=== PATIENT | male | born 1960 | race Caucasian/White ===

== ENCOUNTER 2019-09-22 19:05 | Emergency (ER) | payer OTHER ==
[~2019-09-22] VITALS: Ht 172.7 cm; Wt 76.4 kg
[2019-09-22] MEDS ORDERED: GAVILAX8.5 GM PO (19:19)
[2019-09-22] MEDS ORDERED: NEURONTIN 400M400 M2 PO (19:19)
[2019-09-22] MEDS ORDERED: MELATONIN3 M1 PO (19:20)
[2019-09-22] MEDS ORDERED: KEPPRA100 MG/1 M PO (19:20)
[2019-09-22] MEDS ORDERED: BUSPIRONE HCL10 MG PO (19:21)
[2019-09-22] MEDS ORDERED: TRAZODONE 150150 M1 PO (19:21)
[2019-09-22] MEDS ORDERED: KRISTALOSE20 GM PO (19:22)
[2019-09-22] MEDS ORDERED: TRAMADOL 50 MG50 MG PO (19:23)
[2019-09-22] MEDS ORDERED: ACETAMINOPHEN500 M1 PO (19:24)
[2019-09-22 21:18] LABS: ABSOLUTE NEUTROPHILS 4.4 thou/uL (1.4-8.2); BASOPHILS 0.9 % (0.0-2.0); EOSINOPHILS 5.6 % (0.0-3.0); HEMATOCRIT 33.3 % (42.0-52.0); HEMOGLOBIN 11.2 gm/dL (14.0-18.0); LYMPHOCYTES 25.6 % (24.0-44.0); MCH 29.9 pg (26.0-34.0); MCHC 33.5 g/dL (28.0-37.0); MCV 89.1 fL (80.0-100.0); MONOCYTES 6.3 % (1.0-8.0); PLATELET COUNT 123 thou/uL (150-400); POLYS 61.6 % (36.0-66.0); RBC 3.74 mil/uL (4.50-6.00); RDW 14.7 % (10.5-14.5); WBC 7.2 thou/uL (4.0-11.0)
[2019-09-22 21:23] LABS: URINE BILIRUBIN NEGATIVE (Negative); URINE BLOOD NEGATIVE (Negative); URINE CLARITY CLEAR; URINE COLOR YELLOW; URINE GLUCOSE-RANDOM* NEGATIVE (Negative); URINE KETONES NEGATIVE (Negative); URINE LEUKOCYTES-REFLEX NEGATIVE (Negative); URINE NITRITE-REFLEX NEGATIVE (Negative); URINE PROTEIN (DIPSTICK) NEGATIVE (Negative); URINE SPECIFIC GRAVITY 1.025 (1.005-1.035); URINE UROBILINOGEN 0.2 E.U./dl (0.2-1.0)
[2019-09-22 21:24] LABS: ANION GAP 9 mmol/L (7-16); BUN 17 mg/dL (7-18); CALCIUM 11.7 mg/dL (8.5-10.1); CHLORIDE 110 mmol/L (98-107); CO2 26 mmol/L (21-32); GLUCOSE 94 mg/dL (74-106); POTASSIUM 3.7 mmol/L (3.5-5.1); SODIUM 145 mmol/L (136-145)
[2019-09-22 21:34] LABS: ALBUMIN 3.1 g/dL (3.4-5.0); MAGNESIUM 1.7 mg/dL (1.8-2.4); SGOT 36 U/L (15-37); SGPT 23 U/L (30-65); TOTAL BILIRUBIN 1.6 mg/dL (<0.1-1.0); TROPONIN-I <0.06 ng/mL (<0.06)
[2019-09-22 22:26] VITALS: BP 163/97
[2019-09-22 22:29] LABS: APTT 29.7 Seconds (24.5-32.8); INR 1.2
--- NOTE | 2019-09-23 14:27 | EKG ---
[facility] [place] [address] ELECTROCARDIOGRAM REPORT Name: LEIGHTON DUTTA [facility]: [facility]Makayla#: [id number] Admission: 09/22/19 Attend Phys: Discharge: 09/22/19 Date of : 64 Report #: [id number] THIS REPORT FOR: cc: Oli Jang MD, Christopher B. MD Lundgren,Julian Newton MD [facility] THIS REPORT FOR: //name// [facility] ED Test Date: 2019-09-22 Test Time: 20:11:24 Pat Name: LEIGHTON DUTTA Department: Room: Gender: Horse Doctor: [facility] : 1960 Requested By: Volodymyr Real Order Number: [id number] MD: Julian Seay Measurements Intervals [place] Rate: 97 P: 14 CA: 203 QRS: -42 QRSD: 110 T: 43 QT: 362 QTc: 460 Interpretive Statements Sinus rhythm Left anterior fascicular block No previous ECG available for comparison Electronically Signed On 09-23-2019 14:25:54 CDT by Julian Seay [email or web address] <ELECTRONICALLY SIGNED> By: Julian Seay MD, [facility] 09/23/19 1425 10 10 Julian Seay MD, [facility] /EPI
== END 2019-09-22 22:49 | disposition home or self-care (01) ==
LOC: ER 19:05
PROVIDERS: Emergency Medicine
DX: S06.5X0A Traumatic subdural hemorrhage without loss of consciousness, initial encounter (principal); Z79.899 Other long term (current) drug therapy; W18.39XA Other fall on same level, initial encounter; Y93.89 Activity, other specified; Y92.89 Other specified places as the place of occurrence of the external cause; Y99.8 Other external cause status